=== PATIENT | male | born 1960 | race Caucasian/White ===

== ENCOUNTER 2023-04-24 16:11 | Emergency (ER) | payer MEDICARE, BC ==
[2023-04-24] MEDS ORDERED: Sodium Chloride 0.9% 10 ML Syringe FLUSH PRN (16:38)
[2023-04-24] MEDS ORDERED: Alum Hydrox/Mag Hydrox/Simeth 30 ML, Lidocaine 2% 15 ML PO ONE ×2 (16:39)
[2023-04-24 16:45] LABS: BASOPHILS PERCENT AUTO 0.1 % (0.0-1.0); HEMATOCRIT 46.5 % (42.0-52.0); HEMOGLOBIN 16.4 gm/dl (14.0-18.0); IMMATURE GRAN ABSOLUTE AUTO 0.03 K/mm3 (0.00-0.05); IMMATURE GRAN PERCENT AUTO 0.3 % (0.0-0.4); LYMPHOCYTES ABSOLUTE AUTO 0.3 K/mm3 (1.0-4.8); LYMPHOCYTES PERCENT AUTO 2.8 % (24.0-44.0); MEAN CORPUSCULAR HEMOGLOBIN 33.5 pg (28.0-32.0); MEAN CORPUSCULAR HGB CONC 35.3 g/dl (32.0-36.0); MEAN CORPUSCULAR VOLUME 94.9 fl (83.0-99.0); MEAN PLATELET VOLUME 8.7 fl (9.4-12.4); MONOCYTES ABSOLUTE AUTO 0.5 K/mm3 (0.0-0.8); NEUTROPHILS PERCENT AUTO 92.8 % (41.0-71.0); PLATELET COUNT,PLT 245 K/mm3 (150-400); WHITE BLOOD CELL COUNT,WBC 11.87 K/mm3 (3.9-11.3)
[2023-04-24 17:10] LABS: A/G RATIO 1.1 (1-2); ALBUMIN 4.2 g/dl (3.4-5.0); ANION GAP 15.5 (5-15); BILIRUBIN TOTAL 1.1 mg/dL (0.2-1.0); BUN/CREATININE RATIO 25.6 (14-18); C-REACTIVE PROTEIN 0.9 mg/dL (<1.0); CALCIUM 8.7 mg/dL (8.5-10.1); CREATININE 0.9 mg/dL (0.7-1.3); EST CRCL DRUG DOSING (CG) 73.84 mL/min; POTASSIUM,K 3.5 mEq/L (3.5-5.1); PROTEIN TOTAL,TP 8.2 g/dl (6.4-8.2)
[2023-04-24 17:15] LABS: SLIDE REVIEW ABNORMAL SMEAR
[2023-04-24] MEDS ORDERED: Albuterol/Ipratropium 3.0-0.5 MG/3 ML Neb Soln NEB ONE (17:23)
[2023-04-24 17:30] LABS: CORONAVIRUS COVID-19 NAA NEGATIVE (NEGATIVE); INFLUENZA A NAA NEGATIVE (NEGATIVE)
[2023-04-24] MEDS ORDERED: Sodium Chloride 0.9% 1,000 ML IV SCH ×2 (17:30→20:15)
[2023-04-24] MEDS ORDERED: Albuterol 6.7 GM Inhaler INH ONE (17:36)
[2023-04-24] MEDS ORDERED: Iopamidol 755 Mg/ML 100 ML Bottle IVPUSH ONE (18:31)
[2023-04-24] MEDS ORDERED: Sodium Chloride 0.9% 100 ML IV SCH (18:45)
[2023-04-24] MEDS ORDERED: Metoclopramide 10 MG/2 ML SDV IVPUSH ONE (19:05)
[2023-04-24] MEDS ORDERED: Benzocaine 20% Topical Spray UD MUCMEM ONE (19:49)
== END 2023-04-24 20:30 ==
LOC: JD.ED 16:11
DX: K56.609 Unspecified intestinal obstruction, unspecified as to partial versus complete obstruction (principal); R91.1 Solitary pulmonary nodule
CPT/HCPCS: 0240U; 36415; 43752; 71045; 71046; 71275; 74018; 80053; 83880; 84484; 85025; 85379; 86140; 93005; 94640; 96374; 99285; A9270; J2765; J3490; J7030; Q9967; 93010; J7620-GY